=== PATIENT | female | born 1955 | race Caucasian/White ===

== ENCOUNTER 2019-10-06 05:43 | Day surgery (SDC) | payer OTHER ==
[2019-10-04 14:49] LABS: BASOPHILS # (AUTO) 0.04 x10^3/uL (0-0.1); BASOPHILS % (AUTO) 1 % (0-1); EOSINOPHILS % (AUTO) 7 % (1-7); LYMPHOCYTES # (AUTO) 2.65 x10^3/uL (1-3.4); LYMPHOCYTES % (AUTO) 44 % (22-44); MD NO; MEAN CORPUSCULAR HEMOGLOBIN 29.3 pg (27.0-34.8); MEAN CORPUSCULAR VOLUME 88.6 fL (80-100); MEAN PLATELET VOLUME 8.8 fL (7.4-10.4); MONOCYTES # (AUTO) 0.44 x10^3/uL (0.2-0.8); MONOCYTES % (AUTO) 7 % (2-9); NEUTROPHILS # (AUTO) 2.44 x10^3/uL (1.8-6.8); NEUTROPHILS % (AUTO) 41 % (42-75); PLATELET COUNT 208 x10^3/uL (130-400); RED BLOOD COUNT 4.94 x10^6/uL (3.82-5.3); RED CELL DISTRIBUTION WIDTH 13.6 % (9.6-15.2)
[2019-10-04 15:09] LABS: INTERNATIONAL NORMALIZED RATIO 0.92 (0.93-1.1); PROTHROMBIN TIME 9.7 Seconds (9.6-11.5)
[~2019-10-06] VITALS: Ht 165.1 cm; Wt 53.0 kg
[~2019-10-06 05:43] MED LIST: ALEN70TA6 PO; BENZ100C PO; CHOL5000 PO; GUAI120L37 PO; LACT1CAP37 PO; MULT-516 PO; nyquil PO
[2019-10-06] MEDS ORDERED: SODIUM CHLORIDE 0.9% 1,000 ML IV SCH (06:03)
[2019-10-06] MEDS ORDERED: MIDAZOLAM 1 MG/ML, 5ML ONE (07:07)
[2019-10-06] MEDS ORDERED: FENTANYL PF 100 MCG/2ML ONE (07:07)
[2019-10-06] MEDS ORDERED: LIDOCAINE GEL 2%, 5ML ONE (08:00)
[2019-10-06] MEDS ORDERED: LIDOCAINE 4% TOPICAL SOLUTION 50 ML ONE (08:00)
[2019-10-06] MEDS ORDERED: LIDOCAINE 2%, 20ML ONE (08:00)
== END 2019-10-06 10:00 | disposition home or self-care (01) ==
LOC: OUT 05:43
PROVIDERS: ATTEND Internal Medicine
DX: R05 Cough (principal); J42 Unspecified chronic bronchitis; K21.9 Gastro-esophageal reflux disease without esophagitis; Z79.01 Long term (current) use of anticoagulants; Z79.899 Other long term (current) drug therapy; Z88.1 Allergy status to other antibiotic agents
CPT/HCPCS: 31622; 36415; 85025; 85610; 85730; 93005; 99152; 99153; J2250; J3010; J7030